=== PATIENT | female | born 1985 | race Caucasian/White ===

== ENCOUNTER 2018-09-09 06:58 | Inpatient (IN) ==
--- NOTE | 2018-09-09 07:03 | Emergency Department Note ---
Disposition Clinical Impression: Normal delivery at term Disposition: Transfer Short-Term Hosp Condition: Good Forms: ED Satisfaction Letter Time of Disposition: 07:08 HPI - General Chief complaint: ED OB/Uterine Contractions Stated complaint: delivery Time Seen by Provider: 09/09/18 07:00 Source: patient, family Mode of arrival: wheelchair Limitations: no limitations Nursing Notes Reviewed: Yes Vital Signs Reviewed: Yes - History of Present Illness HPI Narrative: Concern about status. Patient is a . Patient presented to the ED with a precipitous delivery. Patient was full-term and supposed to deliver this upcoming week. She presented to the ED via wheelchair, stating that her water had broken and that she felt like she was about to deliver. When she presented to the ED she was complaining of cramping and she had obvious fluid standing on her pants. She was going to go to labor and delivery, but was stopped and the trauma bay for checking. When we started to remove her pants. The baby's head was already delivered. We delivered her in the wheelchair and then moved her over to the bed. Patient denying any chest pain or shortness breath. Is still having abdominal contractions. - Related Data Allergies Allergy/AdvReac Type Severity Reaction Status Date / Time Unable to Assess Allergy Unverified 09/09/18 07:04 Limitations: ROS unobtainable due to patients medical condition Physical Exam CONSTITUTIONAL: [In active labor] EYES: [EOMI, clear conjunctiva] HENT: [Normocephalic, atraumatic, moist mucus membranes, normal oropharynx] NECK: [normal inspection, full ROM, trachea midline, no obvious swelling] PULMONARY: [normal lung sounds bilaterally, normal chest rise and fall, no respiratory distress or stridor, no wheezes, no rales, no rhonchi CARDIOVASCULAR: [regular rate, regular rhythm, normal heart sounds, no murmurs, distal extremities are warm and well perfused] GASTROINSTESTINAL: [Gravid uterus with precipitous delivery] GENITOURINARY/RECTAL: [See the plan and medical decision making] NEUROLOGIC: [Alert, oriented x3, normal speech, moves all extremities] EXTREMITIES: [Normal inspection, full ROM, no tenderness, no pedal edema, normal capillary refill] MUSCULOSKELETAL: [no gross deformities, atraumatic] SKIN: [No cyanosis, no diaphoresis, normal color, warm, no rash] PSYCHIATRIC: [Anxious] Course Course Narrative: Patient presenting in active labor, full term. Patient was delivered in the wheelchair in the trauma bay. Baby was pink and had a good strong cry. The cord was clamped and cut and the baby was moved over to the baby warmer. We were attempting delivery of the placenta and it would not fully deliver. The on-call ISSUE CLERK was present, Dr. Jc and would like to order Pitocin and to have the patient transferred down to labor and delivery for delivery of her placenta. The baby girl had a good strong cry, normal color and was moving all extremities. She will also be transferred to the nursery.
--- NOTE | 2018-09-09 07:10 | OB/GYN History & Physical ---
Date of Encounter: 09/09/18 Time of Encounter: 07:07 Assessment and Plan (1) and not yet delivered in third trimester Status: Acute (2) 39 weeks gestation of Status: Acute (3) Active labor Status: Acute (4) Spontaneous vaginal delivery Status: Acute Patient will be taken to labor and delivery for delivery of the placenta and repair of any lacerations that are possibilities History of Present Illness HPI: Ms. Estes is a 33 year old female 4 para 3 at 39-5/7 weeks who presented to the emergency room complaining of contractions. Patient while in the emergency room had a spontaneous vaginal delivery while sitting in the wheelchair. We were immediately called as an OB alert and upon arrival baby was already out crying in emergency room doctors were attempting to deliver the placenta. Placenta was not coming and we decided with best to just bring the patient ventilated and delivery examined her probably and deliver the placenta them that. Patient's course has been relatively unremarkable. Past Med Surg Social Fam HX - Past Medical History Source: patient, old records reviewed Medical history: no medical history Psychiatric history: no psych history - Past Surgical History Surgical History: other (Tonsils and adenoids) - Social History Smoking Status: Never smoker Smokeless Tobacco Status: No Alcohol use: none Drug use: none Occupational status: unemployed Current living situation: Home - Independent Activity Level: Independent ambulation Recent Out of Country Travel Within the Last 8 Weeks: No Exposure or Possible Exposure to Illness During Travel: No - Additional Family History Additional family history: Family history noncontributory Obstetrical History - Pregnancies : 4 Para: 3 Livin Medications and Allergies Allergy/AdvReac Type Severity Reaction Status Date / Time Unable to Assess Allergy Unverified 09/09/18 07:04 Review of System OB All systems PM: reviewed and no additional remarkable complaints except as stated Exam - Constitutional Constitutional: well developed, well nourished, average body habitus, moderate distress - HEENT HEENT: EOMI, PERRL, Mucus Membranes Moist - Neck Neck exam: full ROM - Lungs Respiratory exam: CTAB - Cardiovascular Cardiovascular exam: RRR - Abdomen Abdomen: Present: bowel sounds normal - Comments Comments: Patient had already delivered vaginally by the time we arrived placenta still in place patient transferred to labor and delivery for delivery and inspection for possible lacerations Results All other labs normal.
[2018-09-09] MEDS ORDERED: *HR* Oxytocin 10 UNIT/ML VIAL IM ONE (07:16)
--- NOTE | 2018-09-09 07:30 | Emergency Department Note ---
Disposition Clinical Impression: Normal delivery at term Disposition: Transfer Short-Term Hosp Condition: Good Forms: ED Satisfaction Letter HPI - General Chief complaint: ED OB/Uterine Contractions Stated complaint: delivery Time Seen by Provider: 09/09/18 07:00 Source: patient, family Mode of arrival: wheelchair Limitations: no limitations Nursing Notes Reviewed: Yes Vital Signs Reviewed: Yes - History of Present Illness HPI Narrative: Concern about status. - Related Data Allergies Allergy/AdvReac Type Severity Reaction Status Date / Time Unable to Assess Allergy Unverified 09/09/18 07:04 Physical Exam - General Limitations: no limitations Attestation Statement - Attestation Attestation: Mother presented to the emergency department in active labor. She had called OB notifying them of her arrival. Upon arrival in the emergency department she was placed in a wheelchair and was having contractions. Patient having active contractions. Patient holding herself up in the wheelchair. Concern for presenting parts. Patient was taken to the trauma bay where she delivered the baby in the wheelchair before she could be further transfered to bed. Baby was crying upon delivery. She was placed in mother's arms. Mother was transferred to bed. The baby's cord was clamped. Cord was cut. Baby was transferred to baby warmer. Placenta was left in place at the recommendation of OB as able take over care at this point. No specific lacerations or tears were seen. Patient will require a more detailed exam to rule out injuries.
--- NOTE | 2018-09-09 08:00 | Operative Note ---
Date of procedure: 09/09/18 Pre-op diagnosis: Status post vaginal delivery Post-op diagnosis: same (With placenta still in place and a left periurethral laceration, right labial laceration with a first-degree perineal laceration) Procedure: Delivery of the placenta with repair of the right labial laceration left periurethral laceration and first-degree perineal laceration Complications: none Anesthesia: GETA Surgeon: Iron Jc Was there an office support assistant present: No Estimated blood loss (cc): 100 Specimen: none Condition: stable Disposition: other Procedure in Detail: Patient is a 33-year-old 4 para 3 at 39-5/7 weeks who presents emergency room in active labor and delivered. After the delivery patient was transferred to labor and delivery for delivery of the placenta. Patient was placed in the dorsal lithotomy position prepped and draped in usual fashion blood was collected and placenta was delivered spontaneously with a three-vessel cord. Patient was noted to have a first-degree perineal laceration left periurethral laceration and a right labial laceration all 3 were repaired with 4-0 Vicryl in usual fashion. Cervix and vagina was visualized intact. Uterus is explored clots removed minimal bleeding noted 10 mg of Pitocin was given IM after placenta was delivered patient will be observed 2 hours before being taken the floor.
[2018-09-09] MEDS ORDERED: Measles/Mumps/Rubella Vacc 0.5 ML VIAL SQ PRN (08:17)
[2018-09-09] MEDS ORDERED: Acetaminophen 325 MG TABLET PO PRN (08:17)
[2018-09-09] MEDS ORDERED: Prenatal Vit/FA 1 EACH TABLET PO SCH (09:00)
[2018-09-09] MEDS: Ibuprofen 600 MG TABLET PO PRN ×2 (11:31→18:19)
[2018-09-09] MEDS ORDERED: Benzocaine/Menthol 56 GM AEROSOL SPRAY TP PRN (20:32)
[2018-09-10] MEDS: Ibuprofen 600 MG TABLET PO PRN (04:40)
[2018-09-10 07:49] VITALS: BP 123/78
--- NOTE | 2018-09-10 08:41 | Discharge Summary ---
Date of Encounter: 09/10/18 Time of Encounter: 08:38 - Discharge Diagnosis (1) Mother currently breast-feeding Priority: Secondary Status: Acute Comments: well established. Pt denies any complaints. (2) Spontaneous vaginal delivery Priority: Primary Status: Acute Comments: Pt meeting all milestones. - Discharge Medications Prescriptions: Docusate [Colace] 100 mg PO BID #60 capsule Ibuprofen [Motrin] 600 mg PO Q6H PRN #30 tablet PRN Reason: Cramping Home Medications: Benzocaine/Menthol [place] [Dermoplast [place]] 1 appl TP QID PRN aerosol 09/10/18 [Rx] Docusate [Colace] 100 mg PO BID #60 capsule 09/10/18 [Rx] Ibuprofen [Motrin] 600 mg PO Q6H PRN #30 tablet 09/10/18 [Rx] Vit/FA 1 each PO DAILY tablet 09/10/18 [Rx] Allergies/Adverse Reactions: Allergy/AdvReac Type Severity Reaction Status Date / Time Penicillins Allergy Rash Verified 09/09/18 08:16 sulfamethoxazole Allergy Rash Verified 09/09/18 08:16 [From Bactrim] trimethoprim [From Bactrim] Allergy Rash Verified 09/09/18 08:16 Date of admission: 09/09/18 07:53 Primary care physician: PCP NONE Consults: 09/09/18 08:17 Consult to Double Reamer Operator [CONS] Routine Comment: Vaginal delivery, consult needed Discharging clinician: Shikha Alvarez Anticipated date of discharge: 09/10/18 - Patient Status Disposition: Home, Self-Care Condition: Good Functional capacity at discharge: independent ambulation Overall status at discharge: patient is progressing back to baseline - Discharge Instructions Follow Up With: NONE,PCP [Primary Care Provider] - Bala Bennett MD [Partnered Physician] - - Diet and Activity Activity: increase activity as tolerated Diet: regular diet Hospital Course Reason for admission: active labor Delivery: Episiotomy: none Laceration: 1st degree, other (labial) Other procedures: none complications: none Discharge diagnosis: IUP at term delivered baby: female Hospital course: Ms. Estes is a 33 year old female 4 para 3 at 39-5/7 weeks who presented to the emergency room complaining of contractions. Patient while in the emergency room had a spontaneous vaginal delivery while sitting in the wheelchair. Patient's course has been relatively unremarkable. Her course was uncomplicated. Pt was discharged home PPD1, infant. Time Attestation: Total time spent providing and/or coordinating discharge services: Time Spent: Less than 30 minutes Exam - Constitutional Vitals: Temp Pulse Resp BP Pulse Ox 98.3 F 57 16 123/78 98 09/10/18 07:47 09/10/18 07:47 09/10/18 07:47 09/10/18 07:47 09/09/18 19:45 General appearance IM: A&O X 3 - Respiratory Respiratory exam: Present: CTAB - Cardiovascular Cardiovascular exam IM: Present: RRR, +S1, +S2 - External exam: normal external exam Uterine Tone: Firm Uterus Position: 1 Finger Below Umbilicus - Extremities Exam Extremities exam IM: Present: normal inspection - Neurological Exam Neurological exam: normal gait, oriented X3 - Psychiatric Additional comments: reports good mood
== END 2018-09-10 13:25 | disposition home or self-care (01) | DRG 807 ==
LOC: EMEROOARM 06:58 → 1NENULAB 07:03 → 1NENUOBS 09:59
PROVIDERS: ADMIT Obstetrics & Gynecology; ATTEND Obstetrics & Gynecology